=== PATIENT | male | born 1930 | race Caucasian/White ===

== ENCOUNTER 2018-12-20 11:11 | Emergency (ER) | payer MEDICARE ==
[~2018-12-20] VITALS: Ht 162.6 cm; Wt 90.7 kg
[~2018-12-20 11:11] MED LIST: ASPI81CH PO; ATOR20 PO; FURO20 PO; K-Tab10 MEQ PO; Prinivil5 MG PO; TRAM50 PO
[2018-12-20 12:05] LABS: Calcium, Ionized (POC) 1.21 mmol/L (1.10-1.46); Chloride (POC) 101 mmol/L (98-108); Creatinine (POC) 1.3 mg/dL (0.8-1.3); Glucose (ISTAT POC) 196 mg/dL (70-99); Hemoglobin (POC) 12.6 g/dL (13.5-17.5); Potassium (POC) 4.1 mmol/L (3.5-5.5); Sodium (POC) 133 mmol/L (135-148); Total CO2 (POC) 19 mmol/L (21-32)
[2018-12-20 13:17] LABS: Source, Urine Peds U Bag
[2018-12-20 13:28] LABS: Appearance, Urine Turbid (Clear); Bilirubin, Urine Neg (Neg); Blood, Urine 5+ (Neg); Color, Urine Brown (P-Yellow); Glucose Qualitative, Urine Neg (Neg); Ketones, Urine 1+ (Neg); Leukocyte Esterase, Urine 3+ (Neg); Nitrite, Urine Neg (Neg); Protein, Urine 3+ (Neg); Specific Gravity, Urine 1.015 (1.003-1.022); Urobilinogen, Urine NORM (Normal)
[2018-12-20 13:58] LABS: Red Blood Cells, Urine TNTC /hpf (0-2)
[2018-12-20 13:59] LABS: Bacteria Many /hpf; Squamous Epithelial Cells Rare /hpf (Few)
[2018-12-20] MEDS ORDERED: CEFD300 PO (14:11)
== END 2018-12-20 15:00 | disposition home or self-care (01) ==
LOC: ER 11:11
PROVIDERS: Emergency Medicine; Physician Assistant
DX: N39.0 Urinary tract infection, site not specified (principal); Z88.0 Allergy status to penicillin; Z79.82 Long term (current) use of aspirin; Z79.899 Other long term (current) drug therapy; Z79.891 Long term (current) use of opiate analgesic; I10 Essential (primary) hypertension; Z87.891 Personal history of nicotine dependence
CPT/HCPCS: 36415; 80047; 81001; 85014; 87086; 93005; 93010; 96365; 99283-25; J0696

== ENCOUNTER 2018-12-20 20:10 | Inpatient (IN) | payer MEDICARE ==
[~2018-12-20] VITALS: Ht 172.7 cm; Wt 93.5 kg
[~2018-12-20 20:10] MED LIST changes: +CEFD300 PO
[2018-12-20 20:59] LABS: BASOPHILS ABSOLUTE AUTO 0.02 K/mm3 (0.00-0.23); BASOPHILS PERCENT AUTO 0 % (0-2); EOSINOPHILS PERCENT AUTO 0 % (0-6); Hematocrit 36.9 % (37.0-53.0); Hemoglobin 12.3 g/dL (13.5-17.5); IMMATURE GRAN ABSOLUTE AUTO 0.09 K/mm3 (0.00-0.10); IMMATURE GRAN PERCENT AUTO 1 % (0-1); LYMPHOCYTES ABSOLUTE AUTO 1.05 K/mm3 (0.84-5.20); LYMPHOCYTES PERCENT AUTO 7 % (21-46); MONOCYTES ABSOLUTE AUTO 1.24 K/mm3 (0.16-1.47); MONOCYTES PERCENT AUTO 8 % (4-13); Mean Corpuscular HGB 29.5 pg (26.0-34.0); Mean Corpuscular HGB Conc 33.3 g/dL (31.5-36.5); Mean Corpuscular Volume 89 fL (80-100); Mean Platelet Volume 9.7 fL (9.1-12.4); NEUTROPHILS ABSOLUTE AUTO 13.38 K/mm3 (1.96-9.15); NEUTROPHILS PERCENT AUTO 85 % (41-73); Platelet Count 213 K/mm3 (150-400); RDW Coefficient Variation 13.3 % (11.7-14.2); RDW Standard Deviation 43.8 fL (35.1-46.3); Red Blood Cell Count 4.17 M/mm3 (4.30-5.90); White Blood Cell Count 15.78 K/mm3 (4.00-11.30)
[2018-12-20 21:34] LABS: Albumin/Globulin Ratio 0.7 (0.8-1.8); Bun/Creatinine Ratio 19.5 (12.0-20.0); Calcium, Blood 8.8 mg/dL (8.5-10.1); Creatinine, Blood 1.69 mg/dL (0.60-1.20); Globulin, Blood 4.2 g/dL (2.2-4.0); Potassium, Blood 4.4 mmol/L (3.5-5.5); Total Protein, Blood 7.2 g/dL (6.4-8.2)
--- NOTE | 2018-12-21 04:36 | NUR ---
SHIFT SUMMARY: PT IS ALERT TO SELF AND FAMILY, CONFUSION CLEARED UP SOMEWHAT OVERNIGHT. PT IS A 2 PERSON ASSIST FOR TRANSFERS. STAYED IN THE ROOM OVERNIGHT. PT'S IV NOT PATENT UPON ADMISSION, NEW 20G PUT IN THE R. FOREARM. PT SET OFF HIS BED ALARM ATTEMPTING TO GO TO THE BATHROOM, USED THE URINAL IN BED INSTEAD. PT DENIES PAIN, NAUSEA, VOMITING, AND SOB. BED IN LOW POSITION, CALL LIGHT WITHIN REACH, BED ALARM SET. WILL REPORT TO DAY NURSE.
[2018-12-21 05:36] LABS: Hematocrit 35.1 % (37.0-53.0); Hemoglobin 11.9 g/dL (13.5-17.5); Mean Corpuscular HGB 29.5 pg (26.0-34.0); Mean Corpuscular HGB Conc 33.9 g/dL (31.5-36.5); Mean Corpuscular Volume 87 fL (80-100); Mean Platelet Volume 9.6 fL (9.1-12.4); Platelet Count 223 K/mm3 (150-400); RDW Coefficient Variation 13.5 % (11.7-14.2); RDW Standard Deviation 43.1 fL (35.1-46.3); Red Blood Cell Count 4.03 M/mm3 (4.30-5.90); White Blood Cell Count 17.57 K/mm3 (4.00-11.30)
[2018-12-21 06:06] LABS: Albumin, Blood 2.6 g/dL (3.4-5.0); Albumin/Globulin Ratio 0.7 (0.8-1.8); Bilirubin, Total 1.2 mg/dL (0.1-1.0); Bun/Creatinine Ratio 23.9 (12.0-20.0); Creatinine, Blood 1.55 mg/dL (0.60-1.20); Globulin, Blood 3.8 g/dL (2.2-4.0); Total Protein, Blood 6.4 g/dL (6.4-8.2)
[2018-12-21 10:02] LABS: Source, Urine Catheter
[2018-12-21 10:07] LABS: Appearance, Urine Bloody (Clear); Bilirubin, Urine Neg (Neg); Blood, Urine 5+ (Neg); Color, Urine Red (P-Yellow); Glucose Qualitative, Urine Neg (Neg); Ketones, Urine 1+ (Neg); Leukocyte Esterase, Urine 3+ (Neg); Nitrite, Urine Neg (Neg); Protein, Urine 4+ (Neg); Urobilinogen, Urine NORM (Normal)
[2018-12-21 10:30] LABS: Red Blood Cells, Urine TNTC /hpf (0-2)
[2018-12-21 10:31] LABS: Squamous Epithelial Cells Rare /hpf (Few)
[2018-12-21 10:33] LABS: Bacteria Few /hpf
--- NOTE | 2018-12-21 18:56 | NUR ---
SHIFT SUMMARY PATIENT A&O X3. CONFUSED AT TIMES, EASILY REORIENTED. DENIES ANY PAIN, SOB, OR NAUSEA. BS AT BEGINNING OF SHIFT, RETAINING >999. GIBSON PLACED PER DR. STILL. WHEN PLACING GIBSON NO URINE WAS RETAINED DUE TO CLOTS, IRRIGATED GIBSON AND REMOVED A FEW CLOTS. GIBSON NOW RUNNING AND PATENT. URINE PINK/RED IN COLOR. NS @ 75. MEDICATED THROUGHOUT THE SHIFT PER E JAN. BED ALARM ON, CALL LIGHT WITHIN REACH. AT THE BEDSIDE. NO OTHER ACUTE CHANGES.
--- NOTE | 2018-12-22 04:54 | NUR ---
SHIFT SUMMARY: PT IS ALERT AND ORIENTED WITH MINOR CONFUSION, DEMENTIA AT BASELINE, LESS CONFUSION THIS SHIFT THAN LAST. IN THE ROOM AGAIN OVERNIGHT. CATHETER IN PLACE AND DRAINING. PT SLEPT MUCH OF THE NIGHT. POSSIBLE DC HOME TODAY. NO ACUTE CHANGES OR COMPLICATIONS THIS SHIFT. BED IN LOW POSITION, CALL LIGHT WITHIN REACH.
--- NOTE | 2018-12-22 05:10 | NUR ---
PT IS STILL EXPERIENCING SIGNIFICANT HEMATURIA, WILL PASS ALONG TO DAY NURSE TO NOTIFY THE HOSPITALIST. NO CHANGE IN PT STATUS OTHERWISE.
[2018-12-22 05:19] LABS: Hematocrit 33.1 % (37.0-53.0); Mean Corpuscular HGB 29.4 pg (26.0-34.0); Mean Corpuscular HGB Conc 33.2 g/dL (31.5-36.5); Mean Corpuscular Volume 89 fL (80-100); Mean Platelet Volume 9.6 fL (9.1-12.4); Platelet Count 228 K/mm3 (150-400); RDW Standard Deviation 45.6 fL (35.1-46.3); Red Blood Cell Count 3.74 M/mm3 (4.30-5.90)
[2018-12-22 05:46] LABS: Anion Gap 11 mmol/L (6-16); Blood Urea Nitrogen 35 mg/dL (8-24); Bun/Creatinine Ratio 29.2 (12.0-20.0); CO2, Blood 17 mmol/L (21-32); Calcium, Blood 9.1 mg/dL (8.5-10.1); Chloride, Blood 111 mmol/L (98-108); Glomerular Filtration Rate >60 (60-); Glucose, Blood 129 mg/dL (70-99); Potassium, Blood 3.8 mmol/L (3.5-5.5); Sodium, Blood 139 mmol/L (136-145)
[2018-12-22] MEDS ORDERED: TAMS.4ER PO (11:58)
[2018-12-22] MEDS ORDERED: DONE10 PO (11:59)
[2018-12-22] MEDS ORDERED: METF500C PO (12:00)
[2018-12-22] MEDS ORDERED: Saw Palmetto450 MG (12:01)
[2018-12-22] MEDS ORDERED: VIT C-ROSE HIP500 MG PO (12:02)
--- NOTE | 2018-12-22 18:35 | NUR ---
SUMMARY PT HAS BEEN WEAK/FATIGUED, DROWSY HOWEVER AROUSES EASILY, ANSWERS MOST QUESTIONS APPROPRIATE. HIS STATE MUCH IMPROVEMENT IN MENTATION FROM ADMIT. DX UTI, IV ANTIBX CONTINUE. PT HAS HX BPH, SEES UROLOGY OUTPT. STATE CAME TO HOSP D/T HEMATURIA, URINE CONTINUES BLOODY WITH CLOTS, GIBSON CATH WAS PLACED YESTERDAY D/T RETENTION. DR STILL GIVE ORDER TO FLUSH GIBSON IF FLOW STOPS D/T CLOTS HOWEVER HAS NOT REQUIRED TODAY. THIS AFTERNOON TEMP @ 100.9, TYLENOL GIVEN-100.5, NOC RN WILL MX. PT DAUGHTER FROM OUT OF [facility] ([place]) WAS IN TODAY HOWEVER VISIT TURNED INTO ALTERCATION WITH PT'S . BOTH WOMEN WERE CRYING & DISTRAUGHT, HOT DIP GALVANIZER CALLED SUPERVISOR FINISHING IN TO ATTEMPT TO DE-ESCALATE HOWEVER UNSUCCESSFUL, DAUGHTER LEFT HOSPITAL UPSET. TALKED WITH HER THIS AM R/T COMING IN TOMORROW TO SPEAK WITH CARE MANAGEMENT TEAM.
--- NOTE | 2018-12-23 04:05 | NUR ---
SHIFT SUMMARY: PT IS ALERT AND ORIENTED WITH MINOR BASELINE CONFUSION R/T DEMENTIA. PT NOT OUT OF BED OVERNIGHT, STILL TOO WEAK TO AMBULATE SAFELY. IN THE ROOM OVERNIGHT. PT DENIES PAIN, NAUSEA, VOMITING, AND SOB. PT SLEPT MUCH OF THE NIGHT WITHOUT COMPLICATION. NO ACUTE CHANGES OVERNIGHT. CATHETER CONTINUES TO DISPLAY HEMATURIA IN THE COLLECTION BAG. WILL REPORT TO DAY NURSE.
[2018-12-23 11:20] LABS: Hematocrit 34.5 % (37.0-53.0); Mean Corpuscular HGB 29.2 pg (26.0-34.0); Mean Corpuscular HGB Conc 31.9 g/dL (31.5-36.5); Mean Platelet Volume 9.1 fL (9.1-12.4); Platelet Count 207 K/mm3 (150-400); RDW Coefficient Variation 13.9 % (11.7-14.2); Red Blood Cell Count 3.77 M/mm3 (4.30-5.90); White Blood Cell Count 15.11 K/mm3 (4.00-11.30)
[2018-12-23 11:27] LABS: Mean Corpuscular Volume 92 fL (80-100)
[2018-12-23 13:07] LABS: Bun/Creatinine Ratio 24.6 (12.0-20.0); Calcium, Blood 9.4 mg/dL (8.5-10.1); Creatinine, Blood 1.34 mg/dL (0.60-1.20); Potassium, Blood 4.1 mmol/L (3.5-5.5)
--- NOTE | 2018-12-23 19:47 | NUR ---
SUMMARY- PT ALERT AND ORIENTED TO SELF, , PLACE. GOT UP TO CHAIR 3 TIMES TODAY USING THE GENIE LIFT. HAS LITTLE STRENGTH IN LE. PT STATES LESS LETHARGY, AND STATES HIS CONFUSION IS CLEARING. GIBSON DRAINING CRANBERRY MED COLRO THIS AM, HAD 400ML IN GIBSON WHEN U.S. PERFORMED. FINDING HYDROHEPHROSIS AND 1 LITER OF FLUID IN BLADDER. RN IRRIGATED GIBSON WITH NO FLOW INITIALLY. DEFLATED BALOON AND CLEANED CATH, INSERTED DEEPER INTO URETHRA AND URINE BEGAN FLOWING. REINFLATED BALOON. MED JUAN F COLORED BLOODDY URINE. 1600 ML TOTAL, HALF/WAITED HOUR AND 2ND HALF. CALLED DR STILL TO MAKE AWARE. ORDER FOR PRN FLUSH AND BLADDER SCAN.C/O R ANKLE PAIN UNKNOWN ORIGIN, AND L ELBOW PAIN UNKNOWN ORIGIN. GIVEN TYLENOL BID TODAY. STATES NO BM SINCE ADMIT, GIVEN DSS, SENEKOT AND PRUNE JUICE TODAY. DECLINES MOM. TOLERATING FOOD AND FLUIDS. AT BEDSIDE ALL DAY WITH PT, INVOLVED IN CARE. DAUGHTERS ALSO CALL AND VISIT.
--- NOTE | 2018-12-24 04:20 | NUR ---
SHIFT SUMMARY THE PATIENT PRESENTED AT THE START OF THIS SHIFT WITH VITALS WNL, A&O TO SELF AND SURROUNDINGS, AND WITH LUNGS THAT WERE CLEAR. THE PATIENT HAS A GIBSON PLACED AND HAS HAD DIFFICULTIES WITH DRAINING FROM HIS BLADDER. THE PATIENT'S GIBSON WAS FLUSHED TWICE THIS SHIFT, AT 5 AND AT 0425. THE PATIENT SEEMED A EDUCATION AND DEVELOPMENT MANAGER COLOR AT 0425. THE PATIENT HAS SLEPT OFF AND ON DURNING THE SHIFT AND IS RESTING AT THIS TIME. WILL CONTINUE TO MONITOR.
[2018-12-24 05:26] LABS: Hematocrit 28.6 % (37.0-53.0); Hemoglobin 9.3 g/dL (13.5-17.5)
[2018-12-24 06:06] LABS: Anion Gap 9 mmol/L (6-16); Blood Urea Nitrogen 30 mg/dL (8-24); Bun/Creatinine Ratio 26.3 (12.0-20.0); CO2, Blood 20 mmol/L (21-32); Calcium, Blood 8.9 mg/dL (8.5-10.1); Chloride, Blood 106 mmol/L (98-108); Creatinine, Blood 1.14 mg/dL (0.60-1.20); Glomerular Filtration Rate >60 (60-); Glucose, Blood 93 mg/dL (70-99); Sodium, Blood 135 mmol/L (136-145)
--- NOTE | 2018-12-24 18:23 | NUR ---
SHIFT SUMMARY. A&OX3, PLEASANT, COOPERATIVE, [place]. PT'S URINE WAS TEA COLORED THIS AM, IT IS NOW LESS DARK AND SLIGHTLY MORE CLEAR THIS AFTERNOON, GIBSON PATENT AND DRAINING WITH NO CLOTS. GIBSON IRRAGATED ONCE IT WAS REPORTED THAT GIBSON WAS DRAINING, THEN DURING BLADDER US BLADDER HAD OVER 1L RETAINED. PT REPORTS MINOR L ELBOW DISCOMFORT, DENIES NEED FOR PAIN MEDICATION. PT SLIGHTLY FEBRILE THIS AFTERNOON, TEMPERATURE DECREASED WITH APAP. NO N/V, SOB. AT BEDSIDE MOST OF SHIFT.
--- NOTE | 2018-12-25 04:48 | NUR ---
SHIFT SUMMARY THE PATIENT STARTED THE SHIFT WITH VITALS WNL, CLEAR LUNGS AND A&O X4. THE PATIENT HAS SLEPT MOST OF THE SHIFT WITHOUT REQUIRING ANY ASSISTANCE. THE PATIENT'S SPOUSE IS IN THE ROOM WITH THE PATIENT. THE IS PLEASANT TO VISIT WITH. THE PATIENT IS RESTING AT THIS TIME, AFTER HIS BLOOD DRAW, WILL CONYINUE TO MONITOR.
[2018-12-25 05:15] LABS: BASOPHILS ABSOLUTE AUTO 0.03 K/mm3 (0.00-0.23); BASOPHILS PERCENT AUTO 0 % (0-2); EOSINOPHILS ABSOLUTE AUTO 0.24 K/mm3 (0.00-0.68); EOSINOPHILS PERCENT AUTO 2 % (0-6); Hematocrit 28.4 % (37.0-53.0); Hemoglobin 9.3 g/dL (13.5-17.5); IMMATURE GRAN ABSOLUTE AUTO 0.08 K/mm3 (0.00-0.10); IMMATURE GRAN PERCENT AUTO 1 % (0-1); LYMPHOCYTES ABSOLUTE AUTO 1.09 K/mm3 (0.84-5.20); LYMPHOCYTES PERCENT AUTO 10 % (21-46); MONOCYTES ABSOLUTE AUTO 1.04 K/mm3 (0.16-1.47); MONOCYTES PERCENT AUTO 10 % (4-13); Mean Corpuscular HGB 29.6 pg (26.0-34.0); Mean Corpuscular HGB Conc 32.7 g/dL (31.5-36.5); Mean Corpuscular Volume 90 fL (80-100); Mean Platelet Volume 9.5 fL (9.1-12.4); NEUTROPHILS ABSOLUTE AUTO 8.38 K/mm3 (1.96-9.15); NEUTROPHILS PERCENT AUTO 77 % (41-73); Platelet Count 233 K/mm3 (150-400); RDW Coefficient Variation 13.5 % (11.7-14.2); Red Blood Cell Count 3.14 M/mm3 (4.30-5.90); White Blood Cell Count 10.86 K/mm3 (4.00-11.30)
[2018-12-25 05:53] LABS: Alanine Aminotransfer (ALT/SGP 39 U/L (12-78); Albumin, Blood 1.9 g/dL (3.4-5.0); Albumin/Globulin Ratio 0.4 (0.8-1.8); Alk Phos 85 U/L (50-136); Anion Gap 7 mmol/L (6-16); Aspartate Aminotrans (AST/SGOT 48 U/L (12-37); Bilirubin, Total 0.5 mg/dL (0.1-1.0); Blood Urea Nitrogen 30 mg/dL (8-24); Bun/Creatinine Ratio 29.7 (12.0-20.0); CO2, Blood 23 mmol/L (21-32); Calcium, Blood 8.8 mg/dL (8.5-10.1); Chloride, Blood 104 mmol/L (98-108); Creatinine, Blood 1.01 mg/dL (0.60-1.20); Globulin, Blood 4.4 g/dL (2.2-4.0); Glomerular Filtration Rate >60 (60-); Glucose, Blood 118 mg/dL (70-99); Potassium, Blood 4.4 mmol/L (3.5-5.5); Sodium, Blood 134 mmol/L (136-145); Total Protein, Blood 6.3 g/dL (6.4-8.2)
--- NOTE | 2018-12-25 07:35 | NUR ---
Pt gave consent to this student nurse to assist care on 12/25/18.
--- NOTE | 2018-12-25 17:17 | NUR ---
SUMMARY PT HAS BEEN A/O X3 T/O DAY HOWEVER STATE CONTINUING WEAKNESS/FATIGUE. PHY THER IN FOR TX TODAY HOWEVER WAS ONLY ABLE TO STAND & SIT ON SIDE OF BED THEN REQUEST BACK TO BED. HE STATE INTERMITTANT L ELBOW & BILAT ANKLE PAIN, UNRELIEVED WITH TYLENOL, DR SISI KLINE ULTRA, PT STATE RELIEF. GIBSON CATH CONTINUES R/T RETENTION & HEMATURIA, FLOWING WELL TODAY, CLEAR YELLOW, NOTED ONE LRG CLOT PASS THIS AFTERNOON, HAS NOT REQUIRED FLUSHING. @ BEDSIDE T/O DAY, HIS DAUGHTERS HAVE BEEN HERE TO VISIT, SPEAK WITH DR. SHEA 100.4 THIS AFTERNOON, WILL MX.
--- NOTE | 2018-12-26 05:55 | NUR ---
*SHIFT SUMMARY* PATIENT IS ALERT AND ORIENTED TO SELF AND FAMILY. PATIENT HAS VISUAL HALLUCINATIONS AT TIMES AND IS CONFUSED. PATIENTS SLEPT AT BEDSIDE. PATIENT COMPLAINED OF PAIN AND WAS MEDICATED ACCORDINGLY. EARLY THIS MORNING PATIENT REQUESTED TO USE THE BATHROOM AND NOT THE BSC. TRANSFERED PATIENT TO THE BATHROOM WITH HEAVY 2 ASSIST, FWW, AND GAIT BELT. PATIENT IS VERY WEAK AND UNSTEADY. THIS RN DISCUSSED WITH PATIENT AND FAMILY THAT NEXT TIME WE WILL USE THE BSC FOR THE PATIENT IS NOT STRONG ENOUGH TO TRANSFER SAFELY TO THE TOILET RIGHT NOW, HE NEEDS TO STRENGTHEN HIS LEGS. PATIENT AND UNDERSTAND. GIBSON CATHETER IS DRAINING YELLOW, ONE CLOT OF BLOOD WAS NOTED TO PASS. PATIENT HAD LOW GRADE FEVER AT BEGINING OF SHIFT AND WAS MEDICATED FROM DAY SHIFT RN. TEMP DECREASED. NO NEW CHANGES IN PATIENTS STATUS. CALL LIGHT WITHIN REACH, BED LOWERED AND LOCKED WITH ALARM ON.
[2018-12-26 11:55] LABS: Source, Urine Catheter
[2018-12-26 12:04] LABS: Bilirubin, Urine Neg (Neg); Blood, Urine 5+ (Neg); Glucose Qualitative, Urine Neg (Neg); Ketones, Urine Neg (Neg); Leukocyte Esterase, Urine 2+ (Neg); Nitrite, Urine Neg (Neg); Protein, Urine 3+ (Neg); Urobilinogen, Urine NORM (Normal)
[2018-12-26 12:42] LABS: Appearance, Urine Turbid (Clear); Color, Urine Red (P-Yellow)
[2018-12-26 12:46] LABS: Bacteria Few /hpf; Squamous Epithelial Cells Rare /hpf (Few); White Blood Cells, Urine TNTC /hpf (0-5)
--- NOTE | 2018-12-26 13:21 | NUR ---
GIBSON CATH FLOW STOPPED. ATTEMPTED TO FLUSH, UNSUCCESSFUL. SALES DEVELOPMENT REPRESENTATIVE BACK TO ASSESS, ALSO ATTEMPT TO FLUSH, UNSUCCESSFUL, CATHETER D/C'D. NEW 18 FR GIBSON CATH PLACED, BLOODY URINE RETURN, 700ML.
--- NOTE | 2018-12-26 15:45 | NUR ---
GIBSON CATH FLOW POOR, DR LAIRD ORDER FLUSH WITH 500ML STERILE WATER, MULT CLOTS REMOVED.
--- NOTE | 2018-12-26 19:35 | NUR ---
summary PT CONTINUES LETHARGIC, WEAK/FATIGUED. HAS SLEPT INTERMITTANTLY T/O DAY. STATE NO ENERGY. STATE HAS BEEN GETTING POOR SLEEP. GIBSON CATH FAILED THIS AM D/T BLOOD CLOTS, REPLACED & URINE SAMPLE SENT WHICH INDICATES CONTINUING UTI, DR LAIRD CHANGE ANTIBX BACK TO IV. TEMP CONTINUES LOW GRADE 100., TYLENOL GIVEN PRN. HE PARTICIPATED WITH [employer] HOWEVER WEAK, UNSTEADY. UP IN CHAIR FOR SHORT PERIOD OF TIME THEN BACK TO BED. CONTINUES TO HAVE PAIN/SWELLING L ELBOW & HAND, DR CARVALHO, HAVE ENCOURAGED ELEVATION W PILLOW. DR LAIRD ORDER GIBSON CATH IRRIGATED 500 ML, MULT SM CLOTS OUT. PLAN CONTINUES FOR HIM TO TRANSFER TO SNF WHEN APPROP.
[2018-12-27 05:37] LABS: BASOPHILS ABSOLUTE AUTO 0.04 K/mm3 (0.00-0.23); BASOPHILS PERCENT AUTO 0 % (0-2); EOSINOPHILS ABSOLUTE AUTO 0.48 K/mm3 (0.00-0.68); EOSINOPHILS PERCENT AUTO 4 % (0-6); Hematocrit 29.5 % (37.0-53.0); Hemoglobin 9.5 g/dL (13.5-17.5); IMMATURE GRAN ABSOLUTE AUTO 0.24 K/mm3 (0.00-0.10); IMMATURE GRAN PERCENT AUTO 2 % (0-1); LYMPHOCYTES ABSOLUTE AUTO 1.51 K/mm3 (0.84-5.20); LYMPHOCYTES PERCENT AUTO 12 % (21-46); MONOCYTES ABSOLUTE AUTO 1.16 K/mm3 (0.16-1.47); MONOCYTES PERCENT AUTO 9 % (4-13); Mean Corpuscular HGB Conc 32.2 g/dL (31.5-36.5); Mean Corpuscular Volume 90 fL (80-100); Mean Platelet Volume 9.1 fL (9.1-12.4); NEUTROPHILS ABSOLUTE AUTO 9.57 K/mm3 (1.96-9.15); NEUTROPHILS PERCENT AUTO 74 % (41-73); Platelet Count 335 K/mm3 (150-400); RDW Coefficient Variation 13.4 % (11.7-14.2); RDW Standard Deviation 45.1 fL (35.1-46.3); Red Blood Cell Count 3.28 M/mm3 (4.30-5.90)
--- NOTE | 2018-12-27 05:42 | NUR ---
*SHIFT SUMMARY* PATIENT IS ALERT AND ORIENTED TO SELF AND IN ROOM. CONFUSED AT TIMES. PATIENT'S GIBSON CATHETER PATENT AND DRAINING WELL. PATIENT SLEPT DURING MOST OF THE NIGHT. COMPLAINED OF PAIN THIS AM IN LEFT ELBOW. MEDICATED ORDERED. PATIENT IS VERY WEAK, ATTEMPTED TO GET ONTO BSC WITH 2 ASSIST AND PATIENT WAS UNABLE TO BEAR WEIGHT. STATES IT HURTS HIS ANKLES TOO MUCH. PATIENT REPOSITIONED. REPORTED TO STAFF CONCERN OF PATIENTS CONDITION AND ASKED IF HE WAS GOING TO GET BETTER OR NOT. THIS RN ENCOURAGED HER TO SPEAK WITH THE DOCTOR WELL ABOUT THESE CONCERNS, FOR PATIENT IS A FULL CODE. CALL LIGHT WITHIN REACH, BED LOWERED AND LOCKED WITH ALARM ON AND AT BEDSIDE.
[2018-12-27 06:06] LABS: Anion Gap 7 mmol/L (6-16); Blood Urea Nitrogen 26 mg/dL (8-24); Bun/Creatinine Ratio 24.1 (12.0-20.0); CO2, Blood 23 mmol/L (21-32); Calcium, Blood 8.7 mg/dL (8.5-10.1); Chloride, Blood 103 mmol/L (98-108); Creatinine, Blood 1.08 mg/dL (0.60-1.20); Glomerular Filtration Rate >60 (60-); Glucose, Blood 100 mg/dL (70-99); Potassium, Blood 4.2 mmol/L (3.5-5.5); Sodium, Blood 133 mmol/L (136-145)
--- NOTE | 2018-12-27 14:57 | NUR ---
DISCHARGE SUMMARY PT [facility] TO [facility]. PT LEFT ROOM JUST PRIOR TO THIS NOTE. PT LEFT ROOM VIA WHEELCHAIR AND [facility] TRANSPORT WITH SPOUSE AND FRIEND PRESENT. REPORT CALLED AND GIVEN TO MARIAELENA AT R AT 1450. IV DC'D AND BELONGINGS RETURNED.
[2018-12-27] MEDS ORDERED: Seroquel25 MG PO (15:11)
== END 2018-12-27 15:00 | DRG 872 ==
LOC: ER 20:10 → SURS 21:42 → MEDS 23:43 → ENPENDDIS 12-27 11:45 → MEDS 12-27 15:00
PROVIDERS: Emergency Medicine; Internal Medicine; ADMIT Internal Medicine
DX: A41.9 Sepsis, unspecified organism (principal); N39.0 Urinary tract infection, site not specified; N17.9 Acute kidney failure, unspecified; G93.40 Encephalopathy, unspecified; N40.1 Benign prostatic hyperplasia with lower urinary tract symptoms; R33.8 Other retention of urine; B95.4 Other streptococcus as the cause of diseases classified elsewhere; R65.20 Severe sepsis without septic shock; F03.90 Unspecified dementia, unspecified severity, without behavioral disturbance, psychotic disturbance, mood disturbance, and anxiety; R31.9 Hematuria, unspecified; E78.5 Hyperlipidemia, unspecified; I10 Essential (primary) hypertension; E86.0 Dehydration; Z79.82 Long term (current) use of aspirin; Z79.899 Other long term (current) drug therapy; Z88.0 Allergy status to penicillin
CPT/HCPCS: 36415; 71045; 76770; 80048; 80053; 81001; 82947; 83605; 85014; 85018; 85025; 85027; 87040; 87086; 97110; 97116; 97161; 97530; 99285-25; G0103; J0696; J7030; J7050

== ENCOUNTER 2019-01-22 17:47 | Emergency (ER) | payer MEDICARE ==
[~2019-01-22] VITALS: Ht 177.8 cm; Wt 99.8 kg
[~2019-01-22 17:47] MED LIST changes: +DONE10 PO; +METF500C PO; +Saw Palmetto450 MG; +Seroquel25 MG PO; +TAMS.4ER PO; +VIT C-ROSE HIP500 MG PO
[2019-01-22] MEDS ORDERED: CEPH500 PO (19:51)
== END 2019-01-22 22:45 | disposition home or self-care (01) ==
LOC: ER 17:47
DX: T83.511A Infection and inflammatory reaction due to indwelling urethral catheter, initial encounter (principal); F03.90 Unspecified dementia, unspecified severity, without behavioral disturbance, psychotic disturbance, mood disturbance, and anxiety; E78.5 Hyperlipidemia, unspecified; I10 Essential (primary) hypertension; Z88.0 Allergy status to penicillin; Z79.84 Long term (current) use of oral hypoglycemic drugs; Z79.82 Long term (current) use of aspirin; Z79.899 Other long term (current) drug therapy
CPT/HCPCS: 51798; 96365; 99283-25; J0696